=== PATIENT | female | born 1965 | race Caucasian/White ===

== ENCOUNTER 2018-02-21 23:12 | Emergency (ER) | payer BC ==
[2018-02-21] MEDS ORDERED: ONDANSETRON (ODT) 4 MG TAB ODT (23:53)
[2018-02-22] MEDS ORDERED: HYDROCODONE/APAP (5/325) TAB PO
[2018-02-22] MEDS: DIPHTH/TET/ACEL PERTUSS (ADULT) 0.5 ML VIAL IM* (00:08)
[2018-02-22] MEDS: IBUPROFEN 600 MG TAB PO (00:17)
[2018-02-22] MEDS: LIDOCAINE 1% (MDV) 50 ML INJ SC (01:16)
[2018-02-22] MEDS ORDERED: LIDOCAINE 1% (MDV) 20 ML INJ SC (01:30)
== END 2018-02-22 01:52 | disposition home or self-care (01) ==
LOC: FTE 23:12
DX: S61.215A Laceration without foreign body of left ring finger without damage to nail, initial encounter (principal); W25.XXXA Contact with sharp glass, initial encounter; Y92.9 Unspecified place or not applicable; Z23 Encounter for immunization
CPT/HCPCS: 12002; 73140; 90471; 90715; 99283-25